=== PATIENT | female | born 1960 ===

== ENCOUNTER 2017-01-01 16:58 | Emergency (ER) | payer MEDICAID ==
[2017-01-01 16:59] VITALS: PULSE 80
[2017-01-01 17:05] VITALS: RESP 18; O2SAT 100
--- NOTE | 2017-01-01 17:24 | C.PDOC ---
History Of Present Illness 56 y/o female presents to ED with complaints of lower thoracic back pain reproducible and on spinal erector muscle. [employer] [place] reviewed and extensive Adevan prescriptions noted. Patient denies urinary symptoms, fever, chills, nausea, vomiting or any other complaints at this time. Time Seen by Provider: 01/01/17 17:20 Chief Complaint (Nursing): Back Pain History Per: Patient History/Exam Limitations: no limitations Onset/Duration Of Symptoms: Days Current Symptoms Are (Timing): Still Present Past Medical History Reviewed: Historical Data, Nursing Documentation, Vital Signs Vital Signs: Last Vital Signs Temp 98 F 01/01/17 17:04 Pulse 91 H 01/01/17 17:04 Resp 18 01/01/17 17:04 BP 164/85 H 01/01/17 17:04 Pulse Ox 100 01/01/17 17:49 - Medical History PMH: Anxiety, Asthma, Atrial Fibrillation, CVA (x7, walks with cane at baseline. ), Diabetes, GERD, HTN, Hypercholesterolemia Surgical History: Hernia Repair Family History: States: No Known Family Hx - Social History Hx Tobacco Use: No Hx Alcohol Use: No Hx Substance Use: No - Immunization History Hx Tetanus Toxoid Vaccination: Yes Hx Influenza Vaccination: No Hx Pneumococcal Vaccination: Yes (2016) Review Of Systems Constitutional: Negative for: Fever, Chills Gastrointestinal: Negative for: Nausea, Vomiting Genitourinary: Negative for: Dysuria, Frequency Musculoskeletal: Positive for: Back Pain Skin: Negative for: Rash Physical Exam - Physical Exam Appears: Non-toxic, No Acute Distress Skin: Normal Color, Warm, No Rash Head: Atraumatic, Normacephalic Oral Mucosa: Moist Neck: Normal ROM, Supple Chest: Symmetrical Cardiovascular: Rhythm Regular, No Murmur Respiratory: Normal Breath Sounds, No Rales, No Rhonchi, No Wheezing Gastrointestinal/Abdominal: Soft, No Tenderness, No Guarding, No Rebound Back: No CVA Tenderness, Other (Tender to spinal erector muscle, No midline tenderness) Extremity: Normal ROM, Capillary Refill (<2 seconds) Neurological/Psych: Oriented x3, Normal Speech, Normal Cognition ED Course And Treatment - Laboratory Results Lab Interpretation: Normal (ua wnl) O2 Sat by Pulse Oximetry: 100 (RA) Pulse Ox Interpretation: Normal Progress Note: refused Motrin 600 PO Medical Decision Making Medical Decision Making: mulculoskeletal thoracic back pain, refused NSAIDS LOW susp of Sarcoid flair. Disposition Doctor Will See Patient In The: Office Counseled Patient/Family Regarding: Studies Performed, Diagnosis - Disposition Disposition: HOME/ ROUTINE Disposition Time: 18:15 Condition: GOOD Forms: [facility] (Moldovan) - Clinical Impression Clinical Impression: Thoracic back sprain - PA / MAINTENANCE LEADER / Resident Statement MD/DO has examined the patient and agrees with the treatment plan. - Scribe Statement The provider has reviewed the documentation as recorded by the Batsheva Corado All medical record entries made by the Batsheva were at my direction and personally dictated by me. I have reviewed the chart and agree that the record accurately reflects my personal performance of the history, physical exam, medical decision making, and the department course for this patient. I have also personally directed, reviewed, and agree with the discharge instructions and disposition.
[2017-01-01 18:00] LABS: RBC URINE < 1 /hpf (0-3); TRANSITIONAL EPITHIAL < 1 /hpf (0-3); URINE BACTERIA RARE (<OCC); URINE BILIRUBIN NEGATIVE (NEGATIVE); URINE BLOOD NEGATIVE (NEGATIVE); URINE COLOR Yellow (YELLOW); URINE GLUCOSE (UA) NORMAL (Normal); URINE KETONE NEGATIVE (NEGATIVE); URINE LEUKOCYTE ESTERASE NEG Leu/uL (Negative); URINE PROTEIN NEGATIVE (NEGATIVE); URINE UROBILINOGEN NORMAL mg/dL (0.2-1.0); WBC URINE 1 /hpf (0-5)
[2017-01-01 21:11] VITALS: BP 132/64; PULSE 64; TEMP 97.9
== END 2017-01-01 18:30 | disposition home or self-care (01) ==
LOC: C.ER 16:58
DX: S23.3XXA Sprain of ligaments of thoracic spine, initial encounter (principal); X58.XXXA Exposure to other specified factors, initial encounter; Y92.9 Unspecified place or not applicable

== ENCOUNTER 2017-02-15 08:13 | Day surgery (SDC) | payer MEDICAID ==
[2017-02-15 08:55] VITALS: BMI 51.2
[2017-02-15] MEDS ORDERED: Propofol 10 mg/ml Inj (20 ML) ONE (10:24)
[2017-02-15] MEDS ORDERED: Lidocaine Hydrochloride 5 ML INJ ONE (10:41)
[2017-02-15 11:09] VITALS: TEMP 97
[2017-02-15 13:30] VITALS: PULSE 65; O2SAT 95
[2017-02-15 13:34] VITALS: BP 113/57; RESP 15
== END 2017-02-15 13:11 | disposition home or self-care (01) ==
LOC: C.ENDO 08:13
PROVIDERS: ATTEND Internal Medicine Gastroenterology
DX: K29.70 Gastritis, unspecified, without bleeding (principal); K59.00 Constipation, unspecified; K21.9 Gastro-esophageal reflux disease without esophagitis
CPT/HCPCS: 43235; 82948; J2704

== ENCOUNTER 2017-04-11 11:40 | Emergency (ER) | payer MEDICAID ==
[2017-04-11 11:40] VITALS: PULSE 80; BMI 51.2
[2017-04-11 12:14] VITALS: BP 161/81; PULSE 69; RESP 20; TEMP 98.6; O2SAT 99
[2017-04-11] MEDS ORDERED: Bacitracin 500 Units/gm Oint Foilpak UD TOP ONE (12:55)
[2017-04-11] MEDS ORDERED: Bacitracin 500 Units/gm Oint Foilpak UD ONE (13:08)
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
== END 2017-04-11 13:32 | disposition home or self-care (01) ==
LOC: C.ER 11:40
DX: T22.211A Burn of second degree of right forearm, initial encounter (principal); X08.8XXA Exposure to other specified smoke, fire and flames, initial encounter; L03.113 Cellulitis of right upper limb

== ENCOUNTER 2018-06-09 18:56 | Inpatient (IN) | payer MEDICARE, MEDICAID ==
[2018-06-09 18:57] VITALS: PULSE 80; BMI 51.2
[2018-06-09] MEDS ORDERED: Sodium Chloride 0.9% 500 ML IV ONE ×2 (19:56→20:26)
[2018-06-09] MEDS ORDERED: Nitroglycerin 2% Ointment Foilpak UD TOP STA (19:58)
--- NOTE | 2018-06-09 19:59 | C.PDOC ---
History Of Present Illness 58 year old female with Hx of HTN presents to the ER with anterior chest pain described as pressure that increases with deep breathing and palpation. Patient has Hx of being admitted for the same complaint, placed on eliquis. Denies SOB, fever, nausea, or vomiting. Chief Complaint (Nursing): Chest Pain History Per: Patient History/Exam Limitations: no limitations Onset/Duration Of Symptoms: Hrs Current Symptoms Are (Timing): Still Present Associated Symptoms: denies: Nausea, Dyspnea, Other (Fever, Vomiting) Exacerbating Factors: Deep Breathing, Other (Palpation) Alleviating Factors: None Recent travel outside of the [place]: No Past Medical History Reviewed: Historical Data, Nursing Documentation, Vital Signs Vital Signs: Last Vital Signs Temp 98.2 F 06/09/18 19:27 Pulse 94 H 06/09/18 19:27 Resp 20 06/09/18 19:27 BP 159/76 H 06/09/18 19:27 Pulse Ox 100 06/09/18 19:27 - Medical History PMH: Asthma, Atrial Fibrillation, Cardia Arrhythmia (A -FIB), CVA (x7, walks with cane at baseline.), Diabetes, GERD, HTN, Hypercholesterolemia, Osteoporosis, TIA (x 9) Denies: Chronic Kidney Disease Surgical History: Hernia Repair Family History: States: Unknown Family Hx - Social History Hx Tobacco Use: No Hx Alcohol Use: No Hx Substance Use: No - Immunization History Hx Tetanus Toxoid Vaccination: No Hx Influenza Vaccination: No Hx Pneumococcal Vaccination: No (2016) Review Of Systems Constitutional: Negative for: Fever Cardiovascular: Positive for: Chest Pain Respiratory: Negative for: Shortness of Breath Gastrointestinal: Negative for: Nausea, Vomiting Neurological: Negative for: Weakness, Numbness Physical Exam - Physical Exam Appears: Non-toxic, No Acute Distress Skin: Normal Color, Warm, Dry Head: Atraumatic, Normacephalic Eye(s): bilateral: Normal Inspection Oral Mucosa: Moist Neck: Normal, No Midline Cervical Tenderness, No Paracervical Tenderness, Supple Chest: Tenderness (Mild anterior) Cardiovascular: Rhythm Regular Respiratory: Normal Breath Sounds, No Rales, No Rhonchi, No Wheezing Gastrointestinal/Abdominal: Soft, No Tenderness Extremity: Normal ROM (x4) Neurological/Psych: Oriented x3, Normal Speech ED Course And Treatment - Laboratory Results Result Diagrams: 06/09/18 20:02 06/09/18 21:27 ECG: Interpreted By Me, Viewed By Me ECG Rhythm: Sinus Rhythm, ST/T Changes ECG Interpretation: No Acute Changes, Abnormal Interpretation Of ECG: NSR, ST-T abnormality in inferolateral leads. changes seen from tracings of 12/28/2015. Rate From EC O2 Sat by Pulse Oximetry: 100 (Room air) Pulse Ox Interpretation: Normal - Radiology CXR: Interpreted by Me, Viewed By Me CXR Interpretation: Yes: No Acute Disease, Other (normal chest film). No: Infiltrates Progress Note: EKG, blood work, and CXR ordered. Nitrobid applied, IV fluids and toradol administered. At 9:15PM patient developed left facial, left upper extremity, and left lower extremity numbness. Patient presently alert, conscious, left facial droop present, no weakness or change in sensation of extremities. Code stroke called, spoke with Dr. Castillo, patient is on eliquis not a TPA candidate. NIHSS Stroke Scale - Date/Time Evaluation Performed Date Performed: 06/09/18 Time Performed: 21:24 When Was NIHSS Performed: Baseline - How Severe is the Stoke Level of Consciousness: 0=Alert LOC to Questions: 0=Both comments correct LOC to commands: 0=Obeys both correctly Best Gaze: 0=Normal Visual: 0=No visual loss Facial: 1=Minor asymmetry Motor Arm - Left: 0=No drift Motor Arm - Right: 0=No drift Motor Leg - Left: 0=No drift Motor Leg - Right: 0=No drift Limb Ataxia: 0=Absent Sensory: 0=Normal Best Language: 0=No aphasia Dysarthia: 0=Normal articulation Extinction & Inattention (Neglect): 0=Normal, no object Score: 1 NIHSS Stroke Scale 2 - Date/Time Evaluation Performed Date Performed: 06/09/18 Time Performed: 22:08 - How Severe is the Stroke Level of Consciousness: 0=Alert LOC to Questions: 0=Both comments correct LOC to commands: 0=Obeys both correctly Best Gaze: 0=Normal Visual: 0=No visual loss Facial: 1=Minor asymmetry Motor Arm - Left: 0=No drift Motor Arm - Right: 0=No drift Motor Leg - Left: 0=No drift Motor Leg - Right: 0=No drift Limb Ataxia: 0=Absent Sensory: 0=Normal Best Language: 0=No aphasia Dysarthia: 0=Normal articulation Extinction & Inattention (Neglect): 0=Normal, no object Score: 1 rTPA Inclusion/Exclusion - Refusal of Treatment Patient Refused Treatment: No - Inclusion Criteria for Altepase Patient is 18 years or Older: Yes The Clinical Diagnosis of Ischemic Stroke That is Causing a Potentially Disabling Neurological Deficit: Yes Time of Onset is Well Established to be Less Than 270 Minute Before Treatment Would Begin: Yes Risk/Benefit Discussed With Patient/Family Member Present: No - Exclusion Criteria for Altepase Uncontrolled Hypertension at Time of Treatment (Systolic BP above 185 or Diastolic BP above 110 mmHg): No Active Internal Bleeding: No Known Bleeding Diathesis Including but Not Limited to: Platelets Below 100,000/mm,PTT Above 40 sec After Heparin Use, Current Use of Oral Anitcoagulant With INR Greater Than 1.7 or PT Greater Than 15 secs: No Evidence of an Intracranial Hemorrhage: No Evidence of Major Acute Infarct With Signs Greater Than 1/3 MCA Territory: No Suspicion of Subarachnoid Hemorrhage on Pretreatment Evaluation Even if CT Head Negative For Hemorrhage: No - Warning to TPA With Conditions Following Conditions Weighed Against Anticipated Benefit: No Condition: Stroke Serevity Too Mild Additional Condition (For 3-4.5 Hour Window): Any anticoagulant use prior to admission (Even if INR less than 1.7) (on Eliquis) Disposition Discussed With : Ambika Reis Doctor Will See Patient In The: Hospital Counseled Patient/Family Regarding: Diagnosis - Disposition Disposition: HOSPITALIZED Disposition Time: 22:30 Condition: STABLE - POA Present On Arrival: None - Clinical Impression Clinical Impression: Chest pain, TIA (transient ischemic attack), CVA (cerebral vascular accident) - Scribe Statement The provider has reviewed the documentation as recorded by the Scribgwendolyn Duff All medical record entries made by the Scribe were at my direction and per sonally dictated by me. I have reviewed the chart and agree that the record accurately reflects my personal performance of the history, physical exam, medical decision making, and the department course for this patient. I have also personally directed, reviewed, and agree with the discharge instructions and disposition.
[2018-06-09 20:14] LABS: BASO # 0.1 K/uL (0.0-0.2); BASO % 1.2 % (0.0-2.0); EOS % 0.1 % (0.0-4.0); HEMOGLOBIN 12.5 g/dL (11.0-16.0); LYMPH # 2.4 K/uL (1.0-4.3); MEAN CELL VOLUME 86.6 fL (81.0-99.0); MEAN CORPUSCULAR HEMOGLOBIN 28.1 pg (27.0-31.0); MEAN CORPUSCULAR HGB CONC 32.5 g/dL (33.0-37.0); MEAN PLATELET VOLUME 11.1 fL (7.2-11.7); MONO # 0.5 K/uL (0.0-0.8); MONO % 5.1 % (0.0-10.0); NEUT # 7.3 K/uL (1.8-7.0); NEUT % 70.6 % (50.0-75.0); NRBC % 0.1 % (0.0-2.0); RBC 4.45 Mil/uL (3.80-5.20); WHITE BLOOD COUNT 10.3 K/uL (4.8-10.8)
[2018-06-09] MEDS ORDERED: Nitroglycerin 2% Ointment Foilpak UD TOP ONE (20:26)
[2018-06-09 20:28] LABS: INR 1.1; PROTHROMBIN TIME 11.9 SECONDS (9.7-12.2)
[2018-06-09 21:18] LABS: BLOOD UREA NITROGEN 11 mg/dL (7-17); GFR NON-AFRICAN AMERICAN > 60
[2018-06-09 21:21] LABS: ALB/GLOB RATIO 1.1 (1.0-2.1); ALBUMIN 4.3 g/dL (3.5-5.0); ALT/SGPT 7 U/L (9-52); AST/SGOT 30 U/L (14-36)
[2018-06-09] MEDS ORDERED: Iodixanol 320 MG/ML 100 ML BOTTLE IV ONE ×2 (21:23→22:10)
[2018-06-09 21:42] LABS: INR 1.2; PROTHROMBIN TIME 12.7 SECONDS (9.7-12.2)
[2018-06-09 21:55] LABS: ALB/GLOB RATIO 1.1 (1.0-2.1); ALBUMIN 4.5 g/dL (3.5-5.0); ALT/SGPT 13 U/L (9-52); AST/SGOT 18 U/L (14-36); BLOOD UREA NITROGEN 10 mg/dL (7-17); CALCIUM 9.2 mg/dl (8.6-10.4); GFR NON-AFRICAN AMERICAN > 60; HDL CHOLESTEROL 48 mg/dL (30-70)
[2018-06-09 21:56] LABS: LDL CHOLESTEROL 128 mg/dL (0-129)
--- NOTE | 2018-06-10 08:21 | CT ---
Date of service: 06/09/2018 PROCEDURE: CT HEAD WITHOUT CONTRAST. HISTORY: Code Stroke COMPARISON: 01/06/2015. TECHNIQUE: Axial computed tomography images were obtained through the head/brain without intravenous contrast. Radiation dose: Total exam DLP = 860.95 mGy-cm. This CT exam was performed using one or more of the following dose reduction techniques: Automated exposure control, adjustment of the mA and/or kV according to patient size, and/or use of iterative reconstruction technique. FINDINGS: HEMORRHAGE: No intracranial hemorrhage. BRAIN: Wick-white matter differentiation is preserved. There is no mass, mass effect or abnormal extra-axial fluid collection. There is no territorial infarction. The midline sagittal structures are normal. VENTRICLES: The ventricles are normal in size, shape and configuration. CALVARIUM: There is no calvarial fracture or extracranial soft tissue swelling. PARANASAL SINUSES: Predominantly clear. MASTOID AIR CELLS: Predominantly clear. OTHER FINDINGS: None. IMPRESSION: No acute intracranial abnormality. If there is a persistent focal neurologic deficit and an ongoing clinical concern for acute infarction, an MRI of the brain without intravenous contrast would be a more sensitive modality for evaluation of hyperacute/acute ischemic infarction. A preliminary report was provided by [employer].
--- NOTE | 2018-06-10 08:29 | RAD ---
HISTORY: chest pain COMPARISON: Chest x-ray performed 12/27/15 TECHNIQUE: Chest PA and lateral FINDINGS: Examination limited by habitus. LUNGS: Mild pulmonary venous congestion. Mild patchy opacity at the right infrahilar and left lung base. Please note that chest x-ray has limited sensitivity for the detection of pulmonary masses. PLEURA: No significant pleural effusion identified. No definite pneumothorax . CARDIOVASCULAR: Heart size appears within normal limits. Ectatic aorta with atherosclerotic calcifications. OSSEOUS STRUCTURES: Degenerative changes. VISUALIZED UPPER ABDOMEN: Unremarkable. OTHER FINDINGS: None. IMPRESSION: Mild pulmonary venous congestion. Mild patchy opacity at the right infrahilar and left lung base.
[2018-06-10] MEDS ORDERED: Glucagon Recombinant 1 mg Inj IM PRN (09:35)
[2018-06-10] MEDS ORDERED: Dextrose 50% SYRINGE Inj (50 ml) IV PRN (09:35)
--- NOTE | 2018-06-10 10:44 | CT ---
Date of service: 06/09/2018 PROCEDURE: CTA HEAD AND NECK WITH CONTRAST HISTORY: stroke COMPARISON: None available. TECHNIQUE: Initial noncontrast head CT was performed. Subsequently, CT angiogram of the head and neck were performed after the intravenous administration of 80 mL of Omnipaque 350. Contiguous 1.5mm thick images were obtained in the axial plane of the neck. 2-D coronal and sagittal MPR images were obtained. Imaging postprocessing was performed with 3-D images also obtained. A delayed contrast head CT was also obtained. This CT exam was performed using one or more of the following dose reduction techniques: Automated exposure control, adjustment of the mA and/or kV according to patient size, and/or use of iterative reconstruction technique. Contrast dose: 75 mL Visipaque Radiation dose: Total exam DLP = 529.60 mGy-cm. FINDINGS: HEAD: Right: The intracranial internal carotid artery, and anterior and middle cerebral arteries are widely patent. The right A1 segment is hypoplastic, an anatomic variant. Left: The intracranial internal carotid artery, and anterior and middle cerebral arteries are widely patent. Posterior circulation: The visualized intracranial vertebral arteries, basilar artery and posterior cerebral arteries are widely patent. There is origin of bilateral posterior cerebral arteries, an anatomic variant. There is no endoluminal filling defect to suggest thrombus. There is no intracranial saccular aneurysm. NECK: There is a three vessel aortic arch. There is no stenosis at the origins of the great vessels at the level of the aortic arch. There are coarse atherosclerotic calcifications in the left proximal internal carotid artery. Right Carotid: On the right, the common carotid, internal carotid and external carotid arteries are widely patent. There is no hemodynamically significant stenosis in the internal carotid artery by NASCET criteria. Left Carotid: On the left, the common carotid, internal carotid and external carotid arteries are widely patent. There is no hemodynamically significant stenosis in the internal carotid artery by NASCET criteria. The vertebral arteries are widely patent. The visualized soft tissues of the neck are normal. The visualized brain and cervical spine are within normal limits. The lung apices are clear. There is an enlarged multinodular thyroid gland. IMPRESSION: 1. No evidence of endoluminal thrombus,occlusion or definite significant stenosis in the intracranial arteries. 2. No evidence of hemodynamically significant stenosis in the internal carotid arteries. 3. Patent bilateral vertebral arteries. A preliminary report was provided by [employer].
--- NOTE | 2018-06-10 10:45 | CP.PCM.HP ---
History of Present Illness - History of Present Illness History of Present Illness: pt came to ed and admited for feeling pressure pain across l side chest and sob ac numness l side face and body and dizziness Present on Admission - Present on Admission Any Indicators Present on Admission: Yes Review of Systems - Review of Systems Systems not reviewed;Unavailable: Acuity of Condition - Constitutional Constitutional: Fatigue - EENT Eyes: As Per HPI Ears: Dizziness Nose/Mouth/Throat: As Per HPI - Breasts Breasts: As Per HPI - Cardiovascular Cardiovascular: Chest Pain at Rest, Lightheadedness, Palpitations Additional comments: started palpation for 10 days - Respiratory Respiratory: Dyspnea on Exertion - Gastrointestinal Gastrointestinal: As Per HPI - Genitourinary Genitourinary: As Per HPI - Reproductive: Female Reproductive:Female: As Per HPI - Menstruation Menstruation: As Per HPI - Musculoskeletal Musculoskeletal: As Per HPI - Integumentary Integumentary: As Per HPI - Neurological Additional comments: l side numness and weelkness - Psychiatric Psychiatric: As Per HPI - Endocrine Additional Comments: dm - Hematologic/Lymphatic Hematologic: As Per HPI Past Patient History - Past Medical History & Family History Past Medical History?: Yes - Past Social History Smoking Status: Never Smoked - CARDIAC Hx Atrial Fibrillation: Yes Hx Cardia Arrhythmia: Yes (A -FIB) Hx Hypercholesterolemia: Yes Hx Hypertension: Yes - PULMONARY Hx Asthma: Yes - NEUROLOGICAL Hx Transient Ischemic Attacks (TIA): Yes (x 9) - HEENT Hx HEENT Problems: No - RENAL Hx Chronic Kidney Disease: No - ENDOCRINE/METABOLIC Hx Endocrine Disorders: Yes Hx Diabetes Mellitus Type 2: Yes - HEMATOLOGICAL/ONCOLOGICAL Hx Blood Disorders: No - INTEGUMENTARY Hx Dermatological Problems: Yes Other/Comment: psoriasis - MUSCULOSKELETAL/RHEUMATOLOGICAL Hx Osteoporosis: Yes - GASTROINTESTINAL Hx Gastrointestinal Disorders: Yes Hx Gastroesophageal Reflux: Yes Hx Ulcer: Yes - GENITOURINARY/GYNECOLOGICAL Hx Genitourinary Disorders: No - PSYCHIATRIC Hx Substance Use: No - SURGICAL HISTORY Hx Surgeries: Yes Hx Herniorrhaphy: Yes Hx Hysterectomy: Yes - ANESTHESIA Hx Anesthesia: Yes Hx Anesthesia Reactions: No Hx Malignant Hyperthermia: No Meds Allergies/Adverse Reactions: Allergies Allergy/AdvReac Type Severity Reaction Status Date / Time No Known Allergies Allergy Verified 06/09/18 19:30 Physical Exam - Constitutional Appears: In Acute Distress - Head Exam Head Exam: ATRAUMATIC - Eye Exam Eye Exam: Normal appearance Pupil Exam: NORMAL ACCOMODATION - ENT Exam ENT Exam: Normal Exam - Neck Exam Neck exam: Positive for: Normal Inspection - Respiratory Exam Respiratory Exam: Decreased Breath Sounds - Cardiovascular Exam Cardiovascular Exam: REGULAR RHYTHM Additional comments: tender chest wall - GI/Abdominal Exam GI & Abdominal Exam: Normal Bowel Sounds - Rectal Exam Rectal Exam: Deferred - Back Exam Back exam: NORMAL INSPECTION - Neurological Exam Neurological exam: Abnormal Gait, Motor Sensory Deficit - Psychiatric Exam Psychiatric exam: Normal Affect - Skin Skin Exam: Dry, Normal Color Results - Vital Signs Recent Vital Signs: Last Vital Signs Temp 98.7 F 06/10/18 07:00 Pulse 82 06/10/18 07:00 Resp 20 06/10/18 07:00 BP 149/75 06/10/18 07:00 Pulse Ox 97 06/10/18 07:00 - Labs Result Diagrams: 06/09/18 20:02 06/09/18 21:27 Labs: Laboratory Results - last 24 hr 06/09/18 06/09/18 06/09/18 20:02 20:02 20:57 WBC 10.3 RBC 4.45 Hgb 12.5 Hct 38.5 MCV 86.6 D MCH 28.1 MCHC 32.5 L RDW 15.0 H Plt Count 138 D MPV 11.1 Neut % (Auto) 70.6 Lymph % (Auto) 23.0 [place] % (Auto) 5.1 Eos % (Auto) 0.1 Baso % (Auto) 1.2 Neut # (Auto) 7.3 H Lymph # (Auto) 2.4 [place] # (Auto) 0.5 Eos # (Auto) 0.0 Baso # (Auto) 0.1 Differential Comment PT 11.9 INR 1.1 APTT 21 D-Dimer, Quantitative 344 H Sodium 138 Potassium 4.2 Chloride 104 Carbon Dioxide 23 Anion Gap 15 BUN 11 Creatinine 0.5 L Est GFR ( Amer) > 60 Est GFR (Non-Af Amer) > 60 POC Glucose (mg/dL) Random Glucose 82 D Hemoglobin A1c Calcium 9.0 Total Bilirubin 0.7 AST 30 ALT 7 L D Alkaline Phosphatase 119 Troponin I < 0.0120 Total Protein 8.4 H Albumin 4.3 Globulin 4.1 H Albumin/Globulin Ratio 1.1 Triglycerides Cholesterol LDL Cholesterol Direct HDL Cholesterol Blood Type Antibody Screen 06/09/18 06/09/18 06/09/18 21:20 21:27 21:27 WBC RBC Hgb Hct MCV MCH MCHC RDW Plt Count MPV Neut % (Auto) Lymph % (Auto) [place] % (Auto) Eos % (Auto) Baso % (Auto) Neut # (Auto) Lymph # (Auto) [place] # (Auto) Eos # (Auto) Baso # (Auto) Differential Comment PT 12.7 H INR 1.2 APTT 27 D D-Dimer, Quantitative Sodium 138 Potassium 3.6 Chloride 104 Carbon Dioxide 23 Anion Gap 14 BUN 10 Creatinine 0.6 L Est GFR ( Amer) > 60 Est GFR (Non-Af Amer) > 60 POC Glucose (mg/dL) 94 Random Glucose 85 Hemoglobin A1c Calcium 9.2 Total Bilirubin 0.4 AST 18 ALT 13 Alkaline Phosphatase 137 H Troponin I < 0.0120 Total Protein 8.5 H Albumin 4.5 Globulin 4.0 H Albumin/Globulin Ratio 1.1 Triglycerides 94 D Cholesterol 201 H LDL Cholesterol Direct 128 HDL Cholesterol 48 Blood Type Antibody Screen 06/09/18 06/09/18 21:27 21:28 WBC RBC Hgb Hct MCV MCH MCHC RDW Plt Count MPV Neut % (Auto) Lymph % (Auto) [place] % (Auto) Eos % (Auto) Baso % (Auto) Neut # (Auto) Lymph # (Auto) [place] # (Auto) Eos # (Auto) Baso # (Auto) Differential Comment PT INR APTT D-Dimer, Quantitative Sodium Potassium Chloride Carbon Dioxide Anion Gap BUN Creatinine Est GFR ( Amer) Est GFR (Non-Af Amer) POC Glucose (mg/dL) Random Glucose Hemoglobin A1c 5.9 Calcium Total Bilirubin AST ALT Alkaline Phosphatase Troponin I Total Protein Albumin Globulin Albumin/Globulin Ratio Triglycerides Cholesterol LDL Cholesterol Direct HDL Cholesterol Blood Type B NEGATIVE Antibody Screen Negative Assessment & Plan - Assessment and Plan (Free Text) Assessment: ac numness weekness l side face and body hx of recurrent tia dm ac l side chest pain Plan: as ordered - Date & Time Date: 06/10/18 Time: 10:50
--- NOTE | 2018-06-10 11:00 | CT ---
Date of service: 06/09/2018 PROCEDURE: CT Chest with contrast (Pulmonary Angiogram) HISTORY: Chest pain/elev. D-dimer COMPARISON: Correlation made with chest radiograph 06/09/2018. TECHNIQUE: Axial computed tomography images were obtained of the chest in the pulmonary arterial phase of enhancement. Coronal and sagittal reformatted images were created and reviewed. Intravenous contrast dose: Radiation dose: Total exam DLP = 517.26 mGy-cm. This CT exam was performed using one or more of the following dose reduction techniques: Automated exposure control, adjustment of the mA and/or kV according to patient size, and/or use of iterative reconstruction technique. FINDINGS: PULMONARY ARTERIES: Visualized pulmonary trunk, right and left main, lobar, segmental and proximal subsegmental branches of the pulmonary arteries appear relatively well opacified with no definitive filling defects seen to suggest acute central pulmonary embolus. Pulmonary trunk measures approximately 2.5 cm. AORTA: No acute findings. No thoracic aortic aneurysm. Ascending thoracic aorta measures approximately 3.0 cm and descending thoracic aorta measures approximately 2.0 cm. Minor aortic atherosclerotic calcification or mural plaque present. LUNGS: There appears to be mild pulmonary venous congestive changes with ground-glass opacities seen in the right and left upper and lower lobes. PLEURAL SPACES: Unremarkable. No effusion or pneumothorax. HEART: Heart is mildly enlarged with mild left ventricular hypertrophy (LVH). No significant pericardial effusion. LYMPH NODES: There are a few small nonspecific mediastinal lymph nodes. No significant hilar adenopathy. Trachea midline and patent. There are no large central endoluminal lesions. Tiny hiatal hernia. There is mild wall thickening of the distal esophagus and more wall thickening of the midesophagus as well. Findings could be secondary to esophagitis. Consider follow-up endoscopy if clinically indicated. BONES, CHEST WALL: Minor multilevel degenerative spondylosis of the thoracic spine. OTHER FINDINGS: Questionable artifact versus low-attenuation rounded lesion left lobe thyroid gland which measures an approximately 12. 5 x 12.2 mm. Small more discrete elliptical shaped 3.6 mm hypodense nodule left parasagittal aspect of the isthmus. Follow-up thyroid ultrasound recommended. IMPRESSION: No evidence of acute central pulmonary embolus. Mild pulmonary venous congestive changes with bilateral ground-glass opacities seen in the upper and lower lobes. Cardiomegaly with LVH.
[2018-06-10] MEDS: Pantoprazole 40 mg EC Tab PO SCH (11:03)
[2018-06-10] MEDS: diltiaZEM 180 mg/24 Hours CD Cap PO SCH (11:04)
[2018-06-10] MEDS: (Novolog) Insulin Aspart, Recombinant 100 u/ml 10 ml vial SC SCH ×3 (12:22→22:09)
--- NOTE | 2018-06-10 16:10 | MRI ---
Date of service: 06/10/2018 PROCEDURE: MRI BRAIN WITHOUT CONTRAST HISTORY: stroke COMPARISON: Noncontrast head CT from 06/09/2018. TECHNIQUE: Multiplanar, multisequence MR images of the brain were obtained without intravenous contrast enhancement. FINDINGS: HEMORRHAGE: None DWI: No evidence of an acute or early subacute infarction. BRAIN PARENCHYMA: There are mild chronic microangiopathic changes. There is no mass, mass effect or abnormal extra-axial fluid collection. There is no territorial infarction. The midline sagittal structures are normal. VENTRICLES: There is mild age-related global parenchymal volume loss and proportionate enlargement of the ventricles and cortical sulci. CRANIUM: There is normal bone marrow signal pattern. ORBITS: Grossly unremarkable. PARANASAL SINUSES/MASTOIDS: There is a small retention cyst/polyp in the right maxillary sinus. The remaining included paranasal sinuses are predominantly clear. Mastoid air cells are clear. VASCULAR SYSTEM: There are normal signal voids in the larger intracranial arteries. OTHER FINDINGS: None. IMPRESSION: No acute intracranial abnormality. Mild chronic microangiopathic changes and mild age-related global parenchymal volume loss.
--- NOTE | 2018-06-10 17:52 | CARD ---
APPROVED REPORT Date of service: 06/09/2018 EKG Measurement Heart [id number] <Conclusion> Normal sinus rhythm Cannot rule out Anterior infarct, age undetermined Abnormal ECG
--- NOTE | 2018-06-10 17:53 | CARD ---
APPROVED REPORT Date of service: 06/09/2018 EKG Measurement Heart [id number] <Conclusion> Normal sinus rhythm ST & T wave abnormality, consider inferior ischemia Abnormal ECG
[2018-06-10 19:26] LABS: BASO # 0.1 K/uL (0.0-0.2); BASO % 1.2 % (0.0-2.0); EOS # 0.1 K/uL (0.0-0.7); EOS % 1.1 % (0.0-4.0); HEMOGLOBIN 12.6 g/dL (11.0-16.0); LYMPH # 2.5 K/uL (1.0-4.3); LYMPH % 28.4 % (20.0-40.0); MEAN CORPUSCULAR HGB CONC 32.5 g/dL (33.0-37.0); MEAN PLATELET VOLUME 10.2 fL (7.2-11.7); MONO # 0.7 K/uL (0.0-0.8); MONO % 8.6 % (0.0-10.0); NEUT # 5.3 K/uL (1.8-7.0); NEUT % 60.7 % (50.0-75.0); RBC 4.51 Mil/uL (3.80-5.20); RED CELL DISTRIBUTION WIDTH 14.8 % (11.5-14.5); WHITE BLOOD COUNT 8.7 K/uL (4.8-10.8)
[2018-06-10 19:31] LABS: MEAN CELL VOLUME 86.1 fL (81.0-99.0)
[2018-06-11 00:45] VITALS: RESP 20
[2018-06-11] MEDS: (Novolog) Insulin Aspart, Recombinant 100 u/ml 10 ml vial SC SCH ×4 (07:16→22:01)
[2018-06-11] MEDS: Pantoprazole 40 mg EC Tab PO SCH (09:49)
[2018-06-11] MEDS: diltiaZEM 180 mg/24 Hours CD Cap PO SCH (09:49)
[2018-06-11] MEDS ORDERED: Influenza Vaccine 60 mcg/0.5 mL SYR (4YR UP) IM ONE (10:00)
[2018-06-11] MEDS ORDERED: Pneumococcal 23-Valent Vaccine IM ONE (10:00)
--- NOTE | 2018-06-11 10:23 | CP.PCM.CON ---
History of Present Illness - History of Present Illness History of Present Illness: CC chest pain HPI 58 year old female with Hx of HTN presents to the ER with anterior chest pain described as pressure that increases with deep breathing and palpation. Patient has Hx of being admitted for the same complaint, placed on eliquis. Denies SOB, fever, nausea, or vomiting. Past Patient History - Past Medical History & Family History Past Medical History?: Yes - Past Social History Smoking Status: Never Smoked - CARDIAC Hx Cardiac Disorders: Yes Hx Hypercholesterolemia: Yes Hx Hypertension: Yes - PULMONARY Hx Asthma: Yes - NEUROLOGICAL HX Cerebrovascular Accident: Yes - HEENT Hx HEENT Problems: No - RENAL Hx Chronic Kidney Disease: No - ENDOCRINE/METABOLIC Hx Diabetes Mellitus Type 2: Yes - HEMATOLOGICAL/ONCOLOGICAL Hx Blood Disorders: No - INTEGUMENTARY Hx Dermatological Problems: Yes Other/Comment: psoriasis - MUSCULOSKELETAL/RHEUMATOLOGICAL Hx Osteoporosis: Yes - GASTROINTESTINAL Hx Gastrointestinal Disorders: Yes Hx Gastroesophageal Reflux: Yes Hx Ulcer: Yes - GENITOURINARY/GYNECOLOGICAL Hx Genitourinary Disorders: No - PSYCHIATRIC Hx Substance Use: No - SURGICAL HISTORY Hx Surgeries: Yes Hx Herniorrhaphy: Yes Hx Hysterectomy: Yes - ANESTHESIA Hx Anesthesia: Yes Hx Anesthesia Reactions: No Hx Malignant Hyperthermia: No Meds Allergies/Adverse Reactions: Allergies Allergy/AdvReac Type Severity Reaction Status Date / Time No Known Allergies Allergy Verified 06/09/18 19:30 - Medications Medications: Current Medications Aspirin (Aspirin) 325 mg PO DAILY [facility] Last Admin: 06/11/18 09:49 Dose: 325 mg Dextrose (Dextrose 50% Inj) 0 ml IV STAT PRN; Protocol PRN Reason: Hypoglycemia Protocol Dextrose (Glutose 15) 0 gm PO ONCE PRN; Protocol PRN Reason: Hypoglycemia Protocol Diltiazem HCl (Cardizem Cd) 180 mg PO DAILY [facility] Last Admin: 06/11/18 09:49 Dose: 180 mg Glucagon (Glucagen Diagnostic Kit) 0 mg IM STAT PRN; Protocol PRN Reason: Hypoglycemia Protocol Dextrose (Dextrose 5% In Water 1000 Ml) 1,000 mls @ 0 mls/hr IV .Q0M PRN; Protocol PRN Reason: Hypoglycemia Protocol Insulin Aspart (Novolog) 0 unit SC ACHS [facility]; Protocol Last Admin: 06/11/18 07:16 Dose: Not Given Losartan Potassium (Cozaar) 50 mg PO DAILY [facility] Last Admin: 02/09/19 09:49 Dose: 50 mg Pantoprazole Sodium (Protonix Ec Tab) 40 mg PO DAILY [facility] Last Admin: 06/11/18 09:49 Dose: 40 mg Rosuvastatin Calcium (Crestor) 10 mg PO HS [facility] Last Admin: 06/10/18 22:09 Dose: 10 mg Physical Exam - Constitutional Appears: Non-toxic - Head Exam Head Exam: NORMAL INSPECTION - Eye Exam Eye Exam: absent: Scleral icterus - ENT Exam ENT Exam: Mucous Membranes Moist - Neck Exam Neck exam: Positive for: Full Rom - Respiratory Exam Respiratory Exam: Clear to Auscultation Bilateral - Cardiovascular Exam Cardiovascular Exam: REGULAR RHYTHM - GI/Abdominal Exam GI & Abdominal Exam: Soft - Extremities Exam Extremities exam: Positive for: calf tenderness. Negative for: pedal edema - Neurological Exam Neurological exam: Alert, Oriented x3 Results - Vital Signs Recent Vital Signs: Last Vital Signs Temp 97.5 F L 06/11/18 09:19 Pulse 73 06/11/18 09:48 Resp 20 06/11/18 09:19 BP 170/74 H 06/11/18 09:48 Pulse Ox 98 06/11/18 09:19 - Labs Result Diagrams: 06/10/18 19:16 06/09/18 21:27 Labs: Laboratory Results - last 24 hr 06/10/18 06/10/18 06/10/18 06:46 11:14 11:15 WBC RBC Hgb Hct MCV MCH MCHC RDW Plt Count MPV Neut % (Auto) Lymph % (Auto) [place] % (Auto) Eos % (Auto) Baso % (Auto) Neut # (Auto) Lymph # (Auto) [place] # (Auto) Eos # (Auto) Baso # (Auto) POC Glucose (mg/dL) 86 102 Troponin I < 0.0120 06/10/18 06/10/18 06/10/18 16:28 19:16 19:16 WBC 8.7 RBC 4.51 Hgb 12.6 Hct 38.8 MCV 86.1 MCH 28.0 MCHC 32.5 L RDW 14.8 H Plt Count 283 D MPV 10.2 Neut % (Auto) 60.7 Lymph % (Auto) 28.4 [place] % (Auto) 8.6 Eos % (Auto) 1.1 Baso % (Auto) 1.2 Neut # (Auto) 5.3 Lymph # (Auto) 2.5 [place] # (Auto) 0.7 Eos # (Auto) 0.1 Baso # (Auto) 0.1 POC Glucose (mg/dL) 70 Troponin I < 0.0120 06/10/18 06/11/18 21:22 06:41 WBC RBC Hgb Hct MCV MCH MCHC RDW Plt Count MPV Neut % (Auto) Lymph % (Auto) [place] % (Auto) Eos % (Auto) Baso % (Auto) Neut # (Auto) Lymph # (Auto) [place] # (Auto) Eos # (Auto) Baso # (Auto) POC Glucose (mg/dL) 84 87 Troponin I Assessment & Plan - Assessment and Plan (Free Text) Assessment: ACS T2dm Plan: Trops Echo Lexiscan -if positive for ischemia, will do cath - Date & Time Date: 06/11/18 Time: 10:25
--- NOTE | 2018-06-11 13:02 | CP.PCM.PN ---
Subjective - Date & Time of Evaluation Date of Evaluation: 06/11/18 Time of Evaluation: 13:00 - Subjective Subjective: still has chest pain but less bp hi Objective - Vital Signs/Intake and Output Vital Signs (last 24 hours): Temp Pulse Resp BP Pulse Ox 97.5 F L 64 20 170/74 H 98 06/11/18 09:19 06/11/18 12:15 06/11/18 09:19 06/11/18 09:48 06/11/18 09:19 - Medications Medications: Current Medications Aspirin (Aspirin) 325 mg PO DAILY [facility] Last Admin: 06/11/18 09:49 Dose: 325 mg Dextrose (Dextrose 50% Inj) 0 ml IV STAT PRN; Protocol PRN Reason: Hypoglycemia Protocol Dextrose (Glutose 15) 0 gm PO ONCE PRN; Protocol PRN Reason: Hypoglycemia Protocol Diltiazem HCl (Cardizem Cd) 180 mg PO DAILY [facility] Last Admin: 06/11/18 09:49 Dose: 180 mg Glucagon (Glucagen Diagnostic Kit) 0 mg IM STAT PRN; Protocol PRN Reason: Hypoglycemia Protocol Dextrose (Dextrose 5% In Water 1000 Ml) 1,000 mls @ 0 mls/hr IV .Q0M PRN; Protocol PRN Reason: Hypoglycemia Protocol Insulin Aspart (Novolog) 0 unit SC ACHS [facility]; Protocol Last Admin: 06/11/18 12:12 Dose: Not Given Losartan Potassium (Cozaar) 50 mg PO DAILY [facility] Last Admin: 06/11/18 09:49 Dose: 50 mg Pantoprazole Sodium (Protonix Ec Tab) 40 mg PO DAILY [facility] Last Admin: 06/11/18 09:49 Dose: 40 mg Ranolazine (Ranexa) 500 mg PO BID [facility] Rosuvastatin Calcium (Crestor) 10 mg PO HS [facility] Last Admin: 06/10/18 22:09 Dose: 10 mg - Labs Labs: 06/10/18 19:16 06/09/18 21:27 PT 12.7 SECONDS (9.7-12.2) H 06/09/18 21:27 INR 1.2 06/09/18 21:27 APTT 27 SECONDS (21-34) D 06/09/18 21:27 - Constitutional Appears: Non-toxic - Head Exam Head Exam: ATRAUMATIC - Eye Exam Eye Exam: Normal appearance Pupil Exam: NORMAL ACCOMODATION - ENT Exam ENT Exam: Mucous Membranes Moist - Neck Exam Neck Exam: Full ROM - Respiratory Exam Respiratory Exam: Clear to Ausculation Bilateral - Cardiovascular Exam Cardiovascular Exam: REGULAR RHYTHM - GI/Abdominal Exam GI & Abdominal Exam: Normal Bowel Sounds - Extremities Exam Extremities Exam: Normal Inspection - Neurological Exam Neurological Exam: Alert, Awake, Oriented x3 - Psychiatric Exam Psychiatric exam: Normal Affect - Skin Skin Exam: Normal Color Assessment and Plan - Assessment and Plan (Free Text) Assessment: acute chest pain possible coronary disease htn cont as per orders Plan: as ordered
--- NOTE | 2018-06-11 14:48 | CP.PCM.CON ---
History of Present Illness - History of Present Illness History of Present Illness: Neurology consult dictated. Patient who initially came in wiht tia like symptoms, but with normal MRI brain, and resolved deficits. recommend: aspirin 81 mg po daily. Thank you Dr. Castillo Past Patient History - Past Medical History & Family History Past Medical History?: Yes - Past Social History Smoking Status: Never Smoked - CARDIAC Hx Cardiac Disorders: Yes Hx Hypercholesterolemia: Yes Hx Hypertension: Yes - PULMONARY Hx Asthma: Yes - NEUROLOGICAL HX Cerebrovascular Accident: Yes - HEENT Hx HEENT Problems: No - RENAL Hx Chronic Kidney Disease: No - ENDOCRINE/METABOLIC Hx Diabetes Mellitus Type 2: Yes - HEMATOLOGICAL/ONCOLOGICAL Hx Blood Disorders: No - INTEGUMENTARY Hx Dermatological Problems: Yes Other/Comment: psoriasis - MUSCULOSKELETAL/RHEUMATOLOGICAL Hx Osteoporosis: Yes - GASTROINTESTINAL Hx Gastrointestinal Disorders: Yes Hx Gastroesophageal Reflux: Yes Hx Ulcer: Yes - GENITOURINARY/GYNECOLOGICAL Hx Genitourinary Disorders: No - PSYCHIATRIC Hx Substance Use: No - SURGICAL HISTORY Hx Surgeries: Yes Hx Herniorrhaphy: Yes Hx Hysterectomy: Yes - ANESTHESIA Hx Anesthesia: Yes Hx Anesthesia Reactions: No Hx Malignant Hyperthermia: No Meds Allergies/Adverse Reactions: Allergies Allergy/AdvReac Type Severity Reaction Status Date / Time No Known Allergies Allergy Verified 06/09/18 19:30 - Medications Medications: Current Medications Aspirin (Aspirin) 325 mg PO DAILY [facility] Last Admin: 06/11/18 09:49 Dose: 325 mg Dextrose (Dextrose 50% Inj) 0 ml IV STAT PRN; Protocol PRN Reason: Hypoglycemia Protocol Dextrose (Glutose 15) 0 gm PO ONCE PRN; Protocol PRN Reason: Hypoglycemia Protocol Diltiazem HCl (Cardizem Cd) 180 mg PO DAILY [facility] Last Admin: 06/11/18 09:49 Dose: 180 mg Glucagon (Glucagen Diagnostic Kit) 0 mg IM STAT PRN; Protocol PRN Reason: Hypoglycemia Protocol Dextrose (Dextrose 5% In Water 1000 Ml) 1,000 mls @ 0 mls/hr IV .Q0M PRN; Protocol PRN Reason: Hypoglycemia Protocol Insulin Aspart (Novolog) 0 unit SC ACHS [facility]; Protocol Last Admin: 06/11/18 12:12 Dose: Not Given Losartan Potassium (Cozaar) 50 mg PO DAILY [facility] Last Admin: 06/11/18 09:49 Dose: 50 mg Pantoprazole Sodium (Protonix Ec Tab) 40 mg PO DAILY [facility] Last Admin: 06/11/18 09:49 Dose: 40 mg Ranolazine (Ranexa) 500 mg PO BID [facility] Rosuvastatin Calcium (Crestor) 10 mg PO HS [facility] Last Admin: 06/10/18 22:09 Dose: 10 mg Results - Vital Signs Recent Vital Signs: Last Vital Signs Temp 97.5 F L 06/11/18 09:19 Pulse 64 06/11/18 12:15 Resp 20 06/11/18 09:19 BP 170/74 H 06/11/18 09:48 Pulse Ox 98 06/11/18 09:19 - Labs Result Diagrams: 06/10/18 19:16 06/09/18 21:27 Labs: Laboratory Results - last 24 hr 06/10/18 06/10/18 06/10/18 16:28 19:16 19:16 WBC 8.7 RBC 4.51 Hgb 12.6 Hct 38.8 MCV 86.1 MCH 28.0 MCHC 32.5 L RDW 14.8 H Plt Count 283 D MPV 10.2 Neut % (Auto) 60.7 Lymph % (Auto) 28.4 [place] % (Auto) 8.6 Eos % (Auto) 1.1 Baso % (Auto) 1.2 Neut # (Auto) 5.3 Lymph # (Auto) 2.5 [place] # (Auto) 0.7 Eos # (Auto) 0.1 Baso # (Auto) 0.1 POC Glucose (mg/dL) 70 Troponin I < 0.0120 06/10/18 06/11/18 21:22 06:41 WBC RBC Hgb Hct MCV MCH MCHC RDW Plt Count MPV Neut % (Auto) Lymph % (Auto) [place] % (Auto) Eos % (Auto) Baso % (Auto) Neut # (Auto) Lymph # (Auto) [place] # (Auto) Eos # (Auto) Baso # (Auto) POC Glucose (mg/dL) 84 87 Troponin I
[2018-06-11] MEDS: Ranolazine 500 mg Extended Release Tablets PO SCH (18:10)
--- NOTE | 2018-06-11 21:10 | CARD ---
APPROVED REPORT Date of service: 06/11/2018 EXAM: Two-dimensional and M-mode echocardiogram with Doppler and color Doppler. INDICATION CVA/TIA Dizziness and Vertigo Dyspnea Atrial Fibrillation Chest Pain Syncope RISK FACTORS Hyperlipidemia Diabetes 2D DIMENSIONS IVSd0.7 (0.7-1.1cm)Aortic Root (2D)2.6 (2.0-3.7cm) LVDd4.5 (3.9-5.9cm)PWd0.7 (0.7-1.1cm) LA Mjrtrd42 (18-58mL)LVDs2.3 (2.5-4.0cm) FS (%) 48.8 %LVEF (%)74.0 (>50%) LVEF (Caldwell's)60 %IVC0.00 cm M-Mode DIMENSIONS Left Atrium (MM)4.20 (2.5-4.0cm)IVSd0.56 (0.7-1.1cm) Aortic Root2.57 (2.2-3.7cm)LVDd5.05 (4.0-5.6cm) Aortic Cusp Exc.1.87 (1.5-2.0cm)PWd0.62 (0.7-1.1cm) FS (%) 44 %LVDs2.82 (2.0-3.8cm) TAPSE18.74 cmLVEF (%)75 (>50%) Mitral Valve MV E Ukvijycx644.1cm/sMV A Sofndjez356.6cm/sE/A ratio0.9 TDI Lateral E' Peak V10.22cm/sMedial E' Peak V6.55cm/sE/Lateral E'11.2 E/Medial E'17.4 Tricuspid Valve TR Peak Jxqkhbiq442sj/sTR Peak Gr.42wyWeKPVS90kuKx LEFT VENTRICLE The left ventricle is normal size. There is normal left ventricular wall thickness. Left ventricle systolic function is normal. The Ejection Fraction is >70%. There is normal LV segmental wall motion. Tissue Doppler imaging reveals abnormal left ventricular diastolic dysfunction. RIGHT VENTRICLE The right ventricle is normal size. There is normal right ventricular wall thickness. The right ventricular systolic function is normal. ATRIA The left atrium is mildly dilated. The right atrium size is normal. The interatrial septum is intact with no evidence for an atrial septal defect. AORTIC VALVE The aortic valve is normal in structure. No aortic regurgitation is present. There is no aortic valvular stenosis. MITRAL VALVE The mitral valve is normal in structure. There is no evidence of mitral valve prolapse. There is no mitral valve stenosis. Mitral regurgitation is mild. TRICUSPID VALVE The tricuspid valve is normal in structure. There is mild tricuspid regurgitation. Right ventricular systolic pressure is estimated at 30-40 mmHg. There is mild pulmonary hypertension. PULMONIC VALVE The pulmonic valve is not well visualized. There is mild pulmonic valvular regurgitation. GREAT VESSELS The aortic root is normal in size. PERICARDIAL EFFUSION There is no significant pericardial effusion. <Conclusion> Left ventricle systolic function is normal. The Ejection Fraction is >70%. Diastolic dysfunction. No aortic regurgitation is present. Mitral regurgitation is mild. There is mild tricuspid regurgitation. There is mild pulmonary hypertension. There is mild pulmonic valvular regurgitation.
[2018-06-12] MEDS: (Novolog) Insulin Aspart, Recombinant 100 u/ml 10 ml vial SC SCH ×4 (07:36→21:07)
--- NOTE | 2018-06-12 09:41 | CP.PCM.PN ---
Subjective - Date & Time of Evaluation Date of Evaluation: 06/12/18 Time of Evaluation: 09:39 - Subjective Subjective: no chest pain now but has difficulty swalloing Objective - Vital Signs/Intake and Output Vital Signs (last 24 hours): Temp Pulse Resp BP Pulse Ox 97.9 F 61 20 132/67 96 06/12/18 08:58 06/12/18 08:58 06/12/18 08:58 06/12/18 08:58 06/12/18 08:58 - Medications Medications: Current Medications Acetaminophen (Tylenol 325mg Tab) 650 mg PO HS [facility] Last Admin: 06/11/18 22:00 Dose: 650 mg Aspirin (Aspirin) 325 mg PO DAILY [facility] Last Admin: 06/11/18 09:49 Dose: 325 mg Dextrose (Dextrose 50% Inj) 0 ml IV STAT PRN; Protocol PRN Reason: Hypoglycemia Protocol Dextrose (Glutose 15) 0 gm PO ONCE PRN; Protocol PRN Reason: Hypoglycemia Protocol Diltiazem HCl (Cardizem Cd) 180 mg PO DAILY [facility] Last Admin: 06/11/18 09:49 Dose: 180 mg Diphenhydramine HCl (Benadryl) 25 mg PO HS [facility] Last Admin: 06/11/18 22:00 Dose: 25 mg Glucagon (Glucagen Diagnostic Kit) 0 mg IM STAT PRN; Protocol PRN Reason: Hypoglycemia Protocol Dextrose (Dextrose 5% In Water 1000 Ml) 1,000 mls @ 0 mls/hr IV .Q0M PRN; Protocol PRN Reason: Hypoglycemia Protocol Insulin Aspart (Novolog) 0 unit SC [facility]; Protocol Last Admin: 06/12/18 07:36 Dose: Not Given Losartan Potassium (Cozaar) 50 mg PO DAILY [facility] Last Admin: 06/11/18 09:49 Dose: 50 mg Pantoprazole Sodium (Protonix Ec Tab) 40 mg PO DAILY [facility] Last Admin: 06/11/18 09:49 Dose: 40 mg Ranolazine (Ranexa) 500 mg PO BID [facility] Last Admin: 06/11/18 18:10 Dose: 500 mg Rosuvastatin Calcium (Crestor) 10 mg PO HS [facility] Last Admin: 06/11/18 21:23 Dose: 10 mg - Labs Labs: 06/10/18 19:16 06/09/18 21:27 PT 12.7 SECONDS (9.7-12.2) H 06/09/18 21:27 INR 1.2 06/09/18 21:27 APTT 27 SECONDS (21-34) D 06/09/18 21:27 - Constitutional Appears: Non-toxic - Head Exam Head Exam: NORMAL INSPECTION - Eye Exam Eye Exam: Normal appearance Pupil Exam: NORMAL ACCOMODATION - ENT Exam ENT Exam: Mucous Membranes Moist - Neck Exam Neck Exam: Full ROM - Respiratory Exam Respiratory Exam: Clear to Ausculation Bilateral - Cardiovascular Exam Cardiovascular Exam: REGULAR RHYTHM - GI/Abdominal Exam GI & Abdominal Exam: Normal Bowel Sounds - Extremities Exam Extremities Exam: Normal Inspection - Back Exam Back Exam: NORMAL INSPECTION - Neurological Exam Neurological Exam: Alert, Awake, Oriented x3 - Psychiatric Exam Psychiatric exam: Normal Mood - Skin Skin Exam: Dry, Normal Color Assessment and Plan - Assessment and Plan (Free Text) Assessment: swallow ing difficulty Plan: swallow evaluation
[2018-06-12] MEDS: Ranolazine 500 mg Extended Release Tablets PO SCH ×2 (09:43→17:46)
[2018-06-12] MEDS: diltiaZEM 180 mg/24 Hours CD Cap PO SCH (09:43)
[2018-06-12] MEDS: Pantoprazole 40 mg EC Tab PO SCH (09:43)
--- NOTE | 2018-06-12 21:31 | VASCLAB ---
Date of service: 06/11/2018 PROCEDURE: Carotid Duplex Exam. HISTORY: TIA COMPARISON: None available. TECHNIQUE: Grayscale and duplex Doppler evaluation of the cervical carotid and vertebral arteries were performed. The common carotid, carotid bifurcations and cervical Internal Carotid Artery (ICA) and proximal External Carotid Artery (ECA) were evaluated. The vertebral arteries were evaluated for gross patency and flow direction. Report prepared by ELENO Daniels FINDINGS: RIGHT CAROTID ARTERIES: 1. Common Carotid Artery: No significant focal plaque formation of the right common carotid artery. Maximum Peak Systolic velocity: 66 cm/sec: End-diastolic velocity 17 cm/sec. 2. Carotid Bifurcation: Minimal plaque formation. Maximum Peak Systolic velocity: 57 cm/sec: End-diastolic velocity 10 cm/sec. 3. Internal Carotid Artery: No significant focal plaque. 3.1. Proximal Segment: Peak systolic velocity 60 cm/sec: End-diastolic velocity 16 cm/sec - % stenosis 0-15% 3.2. Middle Segment: Peak systolic velocity 74 cm/sec: End-diastolic velocity 29 cm/sec - % stenosis 0-15% 3.3. Distal Segment: Peak systolic velocity 52 cm/sec: End-diastolic velocity 12 cm/sec - % stenosis 0-15% 4. External Carotid Artery: No significant focal plaque formation. Peak systolic velocity 73 cm/sec 5. ICA/CCA Ratio: 1.1 LEFT CAROTID ARTERIES: 1. Common Carotid Artery: No significant focal plaque formation of the left common carotid artery. Maximum Peak Systolic velocity: 86 cm/sec: End-diastolic velocity 20 cm/sec. 2. Carotid Bifurcation: No significant focal plaque formation. Maximum Peak Systolic velocity: 44 cm/sec: End-diastolic velocity 0 cm/sec. 3. Internal Carotid Artery: No significant focal plaque. 3.1. Proximal Segment: Peak systolic velocity 71 cm/sec: End-diastolic velocity 22 cm/sec - % stenosis 0-15% 3.2. Middle Segment: Peak systolic velocity 55 cm/sec: End-diastolic velocity 17 cm/sec - % stenosis 0-15% 3.3. Distal Segment: Peak systolic velocity 51 cm/sec: End-diastolic velocity 17 cm/sec - % stenosis 0-15% 4. External Carotid Artery: No significant focal plaque formation. Peak systolic velocity 67 cm/sec 5. ICA/CCA Ratio: 0.9 VERTEBRAL ARTERIES: 1. Right Vertebral Artery: The right vertebral artery flow direction is antegrade. 2. Left Vertebral Artery: The left vertebral artery flow direction is antegrade. OTHER FINDINGS: 1. Right Brachial Blood pressure: 140/60 mmHg. 2. Left Brachial Blood pressure: 140/80 mmHg. IMPRESSION: RIGHT: Duplex scan does not suggest hemodynamically significant stenosis of the right extracranial carotid arteries. LEFT: Duplex scan does not suggest hemodynamically significant stenosis of the left extracranial carotid arteries.
[2018-06-13] MEDS: (Novolog) Insulin Aspart, Recombinant 100 u/ml 10 ml vial SC SCH ×4 (08:18→21:59)
[2018-06-13] MEDS ORDERED: Caffeine Citrated **INJ** 20 MG/ML IV ONE (08:19)
--- NOTE | 2018-06-13 08:43 | CON ---
DATE: 06/12/2018 CONSULT CALLED BY: Dr. Reis HISTORY OF PRESENT ILLNESS: The patient is a 58-year-old woman who presented with feeling of pressure pain across left side of the chest and numbness of left-sided face and body that was occurring for 4 hours before presentation. There was no headache. There was no weakness. There was no prior episode. There is no prior history of stroke either. PAST MEDICAL HISTORY: Hypertension, hypercholesteremia, past remote history of TIA. PAST SURGICAL HISTORY: None. FAMILY HISTORY: Noncontributory. SOCIAL HISTORY: Noncontributory. The patient does not smoke or drink alcohol. ALLERGIES: NO KNOWN DRUG ALLERGIES AT THIS TIME. REVIEW OF SYSTEMS: Negative for any headache, nausea, vomiting, diarrhea, blurriness of vision. PHYSICAL EXAMINATION: NEUROLOGIC: The patient had a normal neurological exam. NIH stroke scale was 0. Alert and oriented x3. Pupils equal, round and reactive to light. Cranial nerves II through XII normal. Mini mental status 30/30. She could name and repeat. Motor was 5/5 upper limb and lower limb bilaterally. Sensory was intact to fine touch, pin and position sense. Gait was normal. There was no ataxia. Cerebral exam did not show any dysmetria. Reflexes are +2 upper limb and lower limb bilaterally. Toes are downgoing. There is no clonus. CAT scan of the head was done and it was normal. On 06/09/2018, MRI of the brain was done and it was completely normal. CTA of the head and neck was done and it did not show any atherosclerosis. LABORATORY DATA: Completely normal. PT was 12.7. D-dimer was 344. Chemistry was within normal limits except for glucose which was 93. IMPRESSION: The patient is a 58-year-old woman with subjective complaints of left face and arm numbness. NIH stroke score was 0 and it was not found that she has stroke. At this point, there is no further neurological intervention. Please re-consult p.r.n. Thank you for this interesting consult. Debra Castillo MD TRUNG
--- NOTE | 2018-06-13 09:23 | CP.PCM.PN ---
Subjective - Date & Time of Evaluation Date of Evaluation: 06/12/18 Time of Evaluation: 09:00 - Subjective Subjective: no chest pain no sob Objective - Vital Signs/Intake and Output Vital Signs (last 24 hours): Temp Pulse Resp BP Pulse Ox 97.7 F 65 20 132/84 97 06/13/18 07:25 06/13/18 07:25 06/13/18 07:25 06/13/18 07:25 06/13/18 07:25 Intake and Output: 06/13/18 06/13/18 06:59 18:59 Intake Total 120 Balance 120 - Medications Medications: Current Medications Acetaminophen (Tylenol 325mg Tab) 650 mg PO HS [facility] Last Admin: 06/12/18 21:22 Dose: 650 mg Aspirin (Aspirin) 325 mg PO DAILY [facility] Last Admin: 06/12/18 09:43 Dose: 325 mg Dextrose (Dextrose 50% Inj) 0 ml IV STAT PRN; Protocol PRN Reason: Hypoglycemia Protocol Dextrose (Glutose 15) 0 gm PO ONCE PRN; Protocol PRN Reason: Hypoglycemia Protocol Diltiazem HCl (Cardizem Cd) 180 mg PO DAILY [facility] Last Admin: 06/12/18 09:43 Dose: 180 mg Glucagon (Glucagen Diagnostic Kit) 0 mg IM STAT PRN; Protocol PRN Reason: Hypoglycemia Protocol Dextrose (Dextrose 5% In Water 1000 Ml) 1,000 mls @ 0 mls/hr IV .Q0M PRN; Protocol PRN Reason: Hypoglycemia Protocol Insulin Aspart (Novolog) 0 unit SC ACHS [facility]; Protocol Last Admin: 06/13/18 08:18 Dose: Not Given Losartan Potassium (Cozaar) 50 mg PO DAILY [facility] Last Admin: 06/12/18 09:43 Dose: 50 mg Pantoprazole Sodium (Protonix Ec Tab) 40 mg PO DAILY [facility] Last Admin: 06/12/18 09:43 Dose: 40 mg Ranolazine (Ranexa) 500 mg PO BID [facility] Last Admin: 06/12/18 17:46 Dose: 500 mg Rosuvastatin Calcium (Crestor) 10 mg PO HS [facility] Last Admin: 06/12/18 21:22 Dose: 10 mg Zolpidem Tartrate (Ambien) 5 mg PO HS PRN PRN Reason: Insomnia Last Admin: 06/12/18 21:22 Dose: 5 mg - Labs Labs: 06/10/18 19:16 06/09/18 21:27 PT 12.7 SECONDS (9.7-12.2) H 06/09/18 21:27 INR 1.2 06/09/18 21:27 APTT 27 SECONDS (21-34) D 06/09/18 21:27 - Constitutional Appears: Non-toxic - Head Exam Head Exam: ATRAUMATIC - Eye Exam Eye Exam: absent: Scleral icterus - ENT Exam ENT Exam: Mucous Membranes Moist - Neck Exam Neck Exam: Full ROM - Respiratory Exam Respiratory Exam: Chest Wall Tenderness - Cardiovascular Exam Cardiovascular Exam: REGULAR RHYTHM - GI/Abdominal Exam GI & Abdominal Exam: Soft - Exam External exam: NORMAL EXTERNAL EXAM - Extremities Exam Extremities Exam: absent: Pedal Edema - Neurological Exam Neurological Exam: Alert, Oriented x3 Assessment and Plan - Assessment and Plan (Free Text) Assessment: Chest pain-r/o CAD Plan: Lexiscan in AM
[2018-06-13] MEDS: Ranolazine 500 mg Extended Release Tablets PO SCH ×2 (10:56→18:03)
[2018-06-13] MEDS: Pantoprazole 40 mg EC Tab PO SCH (10:57)
[2018-06-13] MEDS: diltiaZEM 180 mg/24 Hours CD Cap PO SCH (10:57)
--- NOTE | 2018-06-13 19:07 | CP.PCM.PN ---
Subjective - Date & Time of Evaluation Date of Evaluation: 06/13/18 Time of Evaluation: 19:05 - Subjective Subjective: pt feels beter had stress test don today result pending Objective - Vital Signs/Intake and Output Vital Signs (last 24 hours): Temp Pulse Resp BP Pulse Ox 98.2 F 70 20 143/70 97 06/13/18 16:00 06/13/18 18:06 06/13/18 18:06 06/13/18 18:06 06/13/18 16:00 - Medications Medications: Current Medications Acetaminophen (Tylenol 325mg Tab) 650 mg PO HS [facility] Last Admin: 06/12/18 21:22 Dose: 650 mg Aspirin (Aspirin) 325 mg PO DAILY [facility] Last Admin: 06/13/18 10:56 Dose: 325 mg Dextrose (Dextrose 50% Inj) 0 ml IV STAT PRN; Protocol PRN Reason: Hypoglycemia Protocol Dextrose (Glutose 15) 0 gm PO ONCE PRN; Protocol PRN Reason: Hypoglycemia Protocol Diltiazem HCl (Cardizem Cd) 180 mg PO DAILY [facility] Last Admin: 06/13/18 10:57 Dose: 180 mg Glucagon (Glucagen Diagnostic Kit) 0 mg IM STAT PRN; Protocol PRN Reason: Hypoglycemia Protocol Insulin Aspart (Novolog) 0 unit SC [facility]; Protocol Last Admin: 06/13/18 17:30 Dose: Not Given Losartan Potassium (Cozaar) 50 mg PO DAILY [facility] Last Admin: 06/13/18 10:59 Dose: 50 mg Pantoprazole Sodium (Protonix Ec Tab) 40 mg PO DAILY [facility] Last Admin: 06/13/18 10:57 Dose: 40 mg Ranolazine (Ranexa) 500 mg PO BID [facility] Last Admin: 06/13/18 18:03 Dose: 500 mg Rosuvastatin Calcium (Crestor) 10 mg PO HS [facility] Last Admin: 06/12/18 21:22 Dose: 10 mg Zolpidem Tartrate (Ambien) 5 mg PO HS PRN PRN Reason: Insomnia Last Admin: 06/12/18 21:22 Dose: 5 mg - Labs Labs: 06/10/18 19:16 06/09/18 21:27 PT 12.7 SECONDS (9.7-12.2) H 06/09/18 21:27 INR 1.2 06/09/18 21:27 APTT 27 SECONDS (21-34) D 06/09/18 21:27 - Constitutional Appears: Non-toxic - Head Exam Head Exam: NORMAL INSPECTION - Eye Exam Eye Exam: Normal appearance Pupil Exam: NORMAL ACCOMODATION - Neck Exam Neck Exam: Normal Inspection - Respiratory Exam Respiratory Exam: Clear to Ausculation Bilateral - Cardiovascular Exam Cardiovascular Exam: REGULAR RHYTHM - GI/Abdominal Exam GI & Abdominal Exam: Soft - Back Exam Back Exam: NORMAL INSPECTION - Neurological Exam Neurological Exam: Alert, Awake, Normal Gait, Oriented x3 - Psychiatric Exam Psychiatric exam: Normal Affect - Skin Skin Exam: Normal Color Assessment and Plan - Assessment and Plan (Free Text) Assessment: chest pain awaite result cont curent treatment Plan: as ordered
[2018-06-14] MEDS: (Novolog) Insulin Aspart, Recombinant 100 u/ml 10 ml vial SC SCH ×2 (07:20→11:52)
--- NOTE | 2018-06-14 07:28 | CARD ---
APPROVED REPORT Date of service: 06/13/2018 Protocol: LEXISCAN Test Type: LEXISCAN STRESS Test Indications: CP Target HR: 160 bpm Resting ECG: NSR W/ POOR RWAVE V1-V3 Resting Heart Rate: 68 bpm Resting Blood Pressure: 132/80mmHg submaximum (85%): 136 bpm TEST SUMMARY PREINFSNHYPERV.10:[id number]/80.0. INFUSIONDOSE 100:300.00.01.074/.0. [id number]/80.0. PROCEDURE Pharmacologic stress testing was performed using 0.4mg per 5ml of regadenoson given intravenously over 7-10 seconds. POST EXERCISE Reason for Termination: Protocol Completed Target HR: No Max HR: 74 bpm 75% of Maximum Predicted HR: 160 bpm Exercise duration: 00:30 min:sec, 0 Stage Exercise capacity: 1.0METs Max Blood Pressure: 134/80mmHg Blood Pressure response to exercise: normal resting BP - appropriate response Heart Rate response to exercise: appropriate Chest Pain: No, none Angina index: 0 Arrhythmia: No, none ST Change: Yes, NS ST T CHANGES Deviation: 0 mm INTERPRETATION Stress EKG Conclusion: NEGATIVE LEXISCAN STRESS TEST NORMAL BP RESPONSE TO LEXISCAN NUCLEAR STUDIES TO BE READ SEPARATELY EXAM: Myocardial Perfusion STRESS/REST Imaging Protocol The imaging protocol used to acquire images was Stress Tc-99m/rest Tc-99m 1 day Stress Spect myocardial perfusion imaging was performed in supine position 45 minutes following the injection of 12.7 mCi of Tc-99 Myoview. Gated Rest Spect was performed 42 minutes after intravenous 32 mCi Tc-99 Myoview injection. The images were gated to evaluate regional wall motion and calculate ventricular ejection fraction.Images were reconstructed using backfilter projection method in short horizontal and verticle long axis. Spect slices were generated. RESTING DATA EDV45.93srGI3.60L/min ESV8.00mlMyocardial Mass93.00g Av. Heart Rate70.00bpm EF82.00% STRESS DATA EDV43.52ugAF2.80L/min ESV6.00mlMyocardial Mass91.00g EF86.00% Regional WT score at stress:0.00 Regional WM score at stress:0.00 Summed WT score at stress:2.00 Av. Heart Rate76.00bpmSummed WM score at stress:0.00 LV Perf. Quant 17 Seg. SSS0.00 17 Seg. SRS0.00 17 Seg. SDS0.00 Stress Defect Extent (% LAD)0.00Rest Defect Extent (% LAD)0.00Rev. Defect Extent (% LAD)0.00 Stress Defect Extent (% LCX)0.00Rest Defect Extent (% LCX)7.50Rev. Defect Extent (% LCX)0.00 Stress Defect Extent (% RCA)0.00Rest Defect Extent (% RCA)0.00Rev. Defect Extent (% RCA)0.00 Stress Defect Extent (% ALESSANDRA)0.00Rest Defect Extent (% ALESSANDRA)1.30Rev. Defect Extent (% ALESSANDRA)0.00 IMPRESSION Normal Myocardial Perfusion exercise stress study Left Ventricle LV Function:Left ventricle systolic function is normal. The Ejection Fraction is >70%. Metabolism/Perfusion There are no perfusion/metabolism defects. Conclusion 1. There is no stress-induced ischemia noted. 2. Left ventricle systolic function is normal. 3. The Ejection Fraction is >70%.
[2018-06-14 08:52] VITALS: TEMP 98.2; O2SAT 94
[2018-06-14 09:07] VITALS: BP 151/79; PULSE 97
[2018-06-14] MEDS: Pantoprazole 40 mg EC Tab PO SCH (09:07)
[2018-06-14] MEDS: Ranolazine 500 mg Extended Release Tablets PO SCH (09:08)
[2018-06-14] MEDS: diltiaZEM 180 mg/24 Hours CD Cap PO SCH (09:08)
--- NOTE | 2018-06-14 09:29 | CP.PCM.PN ---
Subjective - Date & Time of Evaluation Date of Evaluation: 06/14/18 Time of Evaluation: 09:26 - Subjective Subjective: pt feels good no c/o stress test negative Objective - Vital Signs/Intake and Output Vital Signs (last 24 hours): Temp Pulse Resp BP Pulse Ox 98.2 F 97 H 20 151/79 H 94 L 06/14/18 07:20 06/14/18 09:07 06/14/18 07:20 06/14/18 09:07 06/14/18 07:20 Intake and Output: 06/14/18 06/14/18 06:59 18:59 Intake Total 600 Balance 600 - Medications Medications: Current Medications Acetaminophen (Tylenol 325mg Tab) 650 mg PO HS [facility] Last Admin: 06/13/18 22:00 Dose: 650 mg Aspirin (Aspirin) 325 mg PO DAILY [facility] Last Admin: 06/14/18 09:07 Dose: 325 mg Dextrose (Dextrose 50% Inj) 0 ml IV STAT PRN; Protocol PRN Reason: Hypoglycemia Protocol Dextrose (Glutose 15) 0 gm PO ONCE PRN; Protocol PRN Reason: Hypoglycemia Protocol Diltiazem HCl (Cardizem Cd) 180 mg PO DAILY [facility] Last Admin: 06/14/18 09:08 Dose: 180 mg Glucagon (Glucagen Diagnostic Kit) 0 mg IM STAT PRN; Protocol PRN Reason: Hypoglycemia Protocol Insulin Aspart (Novolog) 0 unit SC [facility]; Protocol Last Admin: 06/14/18 07:20 Dose: Not Given Losartan Potassium (Cozaar) 50 mg PO DAILY [facility] Last Admin: 06/14/18 09:08 Dose: 50 mg Pantoprazole Sodium (Protonix Ec Tab) 40 mg PO DAILY [facility] Last Admin: 06/14/18 09:07 Dose: 40 mg Ranolazine (Ranexa) 500 mg PO BID [facility] Last Admin: 06/14/18 09:08 Dose: 500 mg Rosuvastatin Calcium (Crestor) 10 mg PO HS [facility] Last Admin: 06/13/18 21:59 Dose: 10 mg Zolpidem Tartrate (Ambien) 5 mg PO HS PRN PRN Reason: Insomnia Last Admin: 06/13/18 22:12 Dose: 5 mg - Labs Labs: 06/10/18 19:16 06/09/18 21:27 PT 12.7 SECONDS (9.7-12.2) H 06/09/18 21:27 INR 1.2 06/09/18 21:27 APTT 27 SECONDS (21-34) D 06/09/18 21:27 - Constitutional Appears: Well - Head Exam Head Exam: ATRAUMATIC - Eye Exam Eye Exam: Normal appearance Pupil Exam: NORMAL ACCOMODATION - ENT Exam ENT Exam: Mucous Membranes Moist - Respiratory Exam Respiratory Exam: Clear to Ausculation Bilateral - Cardiovascular Exam Cardiovascular Exam: REGULAR RHYTHM - GI/Abdominal Exam GI & Abdominal Exam: Normal Bowel Sounds - Extremities Exam Extremities Exam: Full ROM - Back Exam Back Exam: NORMAL INSPECTION - Neurological Exam Neurological Exam: Awake, Normal Gait - Psychiatric Exam Psychiatric exam: Normal Affect - Skin Skin Exam: Normal Color Assessment and Plan - Assessment and Plan (Free Text) Assessment: chest pain noncardiac hyperglyceamia Plan: discharge today home with med f/u by her md
[2018-06-14] MEDS ORDERED: Pneumococcal 23-Valent Vaccine IM ONE (10:15)
[2018-06-14] MEDS ORDERED: Influenza Vaccine 60 mcg/0.5 mL SYR (4YR UP) IM ONE (10:30)
--- NOTE | 2018-06-21 14:33 | DS ---
HOSPITAL COURSE: She came into the hospital on 06/10/2018 to the emergency room because of her chest pain. She felt pressure on her left side of the chest and she has also some numbness on the left side of the face and the left side of the body. She was feeling dizzy. She was feeling fatigued at the time of the admission. She has no fever. Her pulse was regular, her blood pressure 149/75. Her labs showed CBC normal. Her chemistry also was normal. Her troponin was negative and her EKG was nonspecific. She was seen by Dr. Carr and he ordered some tests. She had a myocardial perfusion scan done and was negative, and her cardiac function was good. She was informed with the results and she was very happy the heart was doing very good. She also had an MRI of the brain which did not show any stroke, was negative, and there was no intracranial except this mild chronic microangiopathic changes related to the age. She also had a carotid Doppler study done to check her circulation to the brain and the result was common carotid artery, no significant focal plaque and was normal. So, the patient was comfortable, there was no more chest pain. She was able to be discharged on the same medications she was taking and to follow up by her MD. FINAL DIAGNOSIS: Acute chest pain, noncardiac. Ambika Reis MD
== END 2018-06-14 11:55 | disposition home or self-care (01) | DRG 313 ==
LOC: C.ER 18:56 → C.6T 22:31
PROVIDERS: ADMIT Internal Medicine; ATTEND Internal Medicine
DX: R07.89 Other chest pain (principal); E78.00 Pure hypercholesterolemia, unspecified; I10 Essential (primary) hypertension; I48.91 Unspecified atrial fibrillation; J45.909 Unspecified asthma, uncomplicated; K21.9 Gastro-esophageal reflux disease without esophagitis; M81.0 Age-related osteoporosis without current pathological fracture; L40.9 Psoriasis, unspecified; E11.65 Type 2 diabetes mellitus with hyperglycemia

== ENCOUNTER 2018-08-30 08:01 | Outpatient (CLI) | payer MEDICARE, MEDICAID | END 2018-08-30 08:02 | disposition home or self-care (01) | LOC: C.MAMMO 08:01 | DX: Z12.31 Encounter for screening mammogram for malignant neoplasm of breast (principal) ==